=== PATIENT | male | born 1960 | race Caucasian/White ===

== ENCOUNTER 2019-04-14 16:10 | Emergency (ER) | payer OTHER ==
[2019-04-14 16:25] VITALS: PULSE 74; BMI 27.8
--- NOTE | 2019-04-14 16:41 | PDOC ---
Documentation entered by Vicky Armando SCRIBE, acting as scribe for Fatemeh Acuna MD. Fatemeh Acuna MD: This documentation has been prepared by the Tr best Xhesika, SCRIBE, under my direction and personally reviewed by me in its entirety. I confirm that the documentation accurately reflects all work, treatment, procedures, and medical decision making performed by me. Attending Attestation - Resident Resident Name: Guillaume Rodriguez - ED Attending Attestation I have performed the following: I have examined & evaluated the patient, The case was reviewed & discussed with the resident, I agree w/resident's findings & plan, Exceptions are as noted - HPI HPI: 04/14/19 18:18 This 58-year-old male has had an unsteady gait for the past several weeks and saw a nurse practitioner at [facility] on April 08 who felt it was an ear infection causing vertigo. He was placed on amoxicillin. However his symptoms did not improve - Physicial Exam PE: 04/14/19 18:22 wnwd 58 yo male ooking older than stated age p/w complaint of unsteady gait eyes paige eomi neck supple head ncat lungs cta b/l abd nontender extremities n deformities, no LE edema skin warm an dry neuro alert,conversant - Medical Decision Making 04/14/19 16:40 EKG sinus bradycardia at 58 bpm, incomplete right bundle branch block, LVH 04/14/19 19:30 CBC is within normal limits Chemistries are unremarkable CAT scan of the head showed no acute intracranial pathology, no bleed, no masses but there is a complete complete opacification of left mastoid air cells and left middle ear cavity pt was told to finish his antibiotics and see his PCP and the ENT specialist as soon as possible 04/15/19 01:27
[2019-04-14] MEDS ORDERED: ACETAMINOPHEN 1000 MG/100 ML VIAL (NON FORMULARY) IVPB ONE (17:08)
[2019-04-14] MEDS ORDERED: SODIUM CHLORIDE 0.9% 500 ML INFUS.BAG IV ONE (17:08)
--- NOTE | 2019-04-14 17:25 | PDOC ---
History of Present Illness - General Chief Complaint: Weakness Stated Complaint: LEG PAIN Time Seen by Provider: 04/14/19 16:36 - History of Present Illness Initial Comments: H&P obtained via wet finisher. Mr. Steve Packer is a 58 y/o male with non-contributory PMH presenting today with headache and weakness in the legs. Reports that he had a fever last Sunday (1 week ago). Reports that he saw his PCP on Sunday and was diagnosed with an ear infection and given amoxicillin. Reports a mild left sided headache over the past several days. Reports that he subjectively feels less energy and mildly unstable on his legs when walking. Headache does not radiate anywhere else. Family reports that he has worsening ataxia and unsteady gait over the past year. Reports that he was bit by a tick 1 year ago. Denies fever/chills. Denies abdominal pain. Denies dysuria or diarrhea. Denies back pain. Denies neck pain. Denies nausea/vomiting. Denies vision changes. Reports that he was supposed to f/u with his PCP today but she was not available and he subsequently came to the ED. Past History - Past Medical History Allergies/Adverse Reactions: Allergies Allergy/AdvReac Type Severity Reaction Status Date / Time No Known Allergies Allergy Verified 04/14/19 16:24 Home Medications: Ambulatory Orders NK [No Known Home Medication] 04/14/19 COPD: No - Psycho Social/Smoking Cessation Hx Smoking History: Unknown if ever smoked Hx Alcohol Use: No Drug/Substance Use Hx: No Review of Systems - Review of Systems Comments:: GENERAL/CONSTITUTIONAL: No fever or chills. Reports malaise. HEAD, EYES, EARS, NOSE AND THROAT: No change in vision. No change in hearing. No sore throat._ CARDIOVASCULAR: No chest pain or shortness of breath_ RESPIRATORY: Denies cough, hemoptysis_ GASTROINTESTINAL: No nausea, vomiting, diarrhea or constipation._ GENITOURINARY: No dysuria, frequency, or change in urination._ MUSCULOSKELETAL: No joint or muscle swelling or pain. No neck or back pain._ SKIN: No rash_ NEUROLOGIC: Reports mild headache and lightheadedness. No loss of consciousness , or change in strength/sensation. Reports unsteady gait. ENDOCRINE: No increased thirst. No abnormal weight change_ HEMATOLOGIC/LYMPHATIC: No anemia, easy bleeding, or history of blood clots._ ALLERGIC/IMMUNOLOGIC: No hives or skin allergy._ *Physical Exam - Vital Signs Last Vital Signs Temp Pulse Resp BP Pulse Ox 97.4 F L 74 16 134/78 97 04/14/19 16:22 04/14/19 16:22 04/14/19 16:22 04/14/19 16:22 04/14/19 16:22 - Physical Exam GENERAL: Awake, alert, and oriented to person/place/time, in no acute distress_ HEAD: No signs of trauma, normocephalic, atraumatic _ EYES: PERRLA, EOMI, sclera anicteric, conjunctiva clear_ ENT: Hearing grossly normal, nares patent, oropharynx clear without exudates. No uvular deviation. Moist mucosa_ NECK: Normal ROM, supple, no lymphadenopathy, JVD, or masses_ LUNGS: No distress, speaks in full sentences, clear to auscultation bilaterally _ HEART: Regular rate and rhythm, normal S1 and S2, no murmurs appreciated, peripheral pulses normal and equal bilaterally._ ABDOMEN: Soft, nontender, normoactive bowel sounds. No guarding, no rebound. No masses_ EXTREMITIES: Normal inspection, Normal range of motion, no edema. No clubbing or cyanosis_ NEUROLOGICAL: CN II-XII tested and intact. Sensation intact to sharp/dull differentiation in all extremities. Motor: Normal tone and bulk. No abnormal movements appreciated. No pronator drift. Strength tested and 5/5 in bilateral wrist flexion/extension, elbow flexion/extension, shoulder abduction, straight leg raise, knee flexion/ extension, ankle dorsiflexion/plantarflexion. Gait does not appear ataxic on exam. Coordination: Finger to nose and heel to greene testing intact bilaterally. SKIN: Warm, Dry, normal turgor, no rashes or lesions noted_ ED Treatment Course - LABORATORY CBC & Chemistry Diagram: 04/14/19 17:12 04/14/19 17:12 Medical Decision Making - Medical Decision Making 04/14/19 17:15 58M no significant PMH presenting with dizziness and subjective weakness in BLE and worsening ataxia per family. -cbc, cmp -ua, ucx -ct head -lyme ab 04/14/19 17:30 EKG shows sinus bradycardia at 58 bpm, incomplete right bundle branch block, LVH , QTc 432, no ST elevation/depression. 04/14/19 19:54 Patient reassessed. Reports that his symptoms have much improved. CT head shows complete opacification of the left mastoid air cells and left middle ear cavity. No acute intracranial hemorrhage or pathology noted. Labs reviewed. Plan to d/c home with ENT and PCP f/u. Laboratory Tests 04/14/19 04/14/19 04/14/19 17:12 17:12 17:12 WBC 6.6 RBC 4.67 Hgb 15.2 Hct 45.3 MCV 97.1 H MCH 32.7 MCHC 33.7 RDW 12.4 Plt Count 262 MPV 7.7 Absolute Neuts (auto) 3.3 Neutrophils % 49.6 Lymphocytes % 36.0 Monocytes % 9.8 Eosinophils % 3.9 Basophils % 0.7 Nucleated RBC % 0 Sodium 140 Potassium 4.2 Chloride 106 Carbon Dioxide 27 Anion Gap 7 L BUN 17.8 Creatinine 0.8 Est GFR (CKD-EPI)AfAm 114.93 Est GFR (CKD-EPI)NonAf 99.16 Random Glucose 85 Calcium 9.0 Total Bilirubin 0.3 AST 30 ALT 41 Alkaline Phosphatase 117 Total Protein 7.5 Albumin 3.7 Urine Color Cancelled Urine Appearance Cancelled Urine pH Cancelled Ur Specific [place] Urine Protein Cancelled Urine Glucose (UA) Cancelled Urine Ketones Cancelled Urine Blood Cancelled Urine Nitrite Cancelled Urine Bilirubin Cancelled Urine Urobilinogen Cancelled Ur Leukocyte Esterase Cancelled 04/14/19 19:33 WBC RBC Hgb Hct MCV MCH MCHC RDW Plt Count MPV Absolute Neuts (auto) Neutrophils % Lymphocytes % Monocytes % Eosinophils % Basophils % Nucleated RBC % Sodium Potassium Chloride Carbon Dioxide Anion Gap BUN Creatinine Est GFR (CKD-EPI)AfAm Est GFR (CKD-EPI)NonAf Random Glucose Calcium Total Bilirubin AST ALT Alkaline Phosphatase Total Protein Albumin Urine Color Yellow Urine Appearance Clear Urine pH 6.5 Ur Specific [place] 1.018 Urine Protein Negative Urine Glucose (UA) Negative Urine Ketones Negative Urine Blood Negative Urine Nitrite Negative Urine Bilirubin Negative Urine Urobilinogen 0.2 Ur Leukocyte Esterase Negative Discharge - Discharge Information Problems reviewed: Yes Clinical Impression/Diagnosis: Dizziness Condition: Stable Disposition: HOME - Admission No - Follow up/Referral Referrals: Alyson Hardin MD [Primary Care Provider] - Mike Garcia MD [Staff Physician] - - Patient Discharge Instructions Additional Instructions: Please make a follow up appointment with an ENT specialist (referral provided) and with your primary care doctor. It is extremely important that you follow up. Please finish your course of antibiotics. If you experience any new, worsening, or concerning symptoms, including severe headache, frequent falls, loss of consciousness, high fever that does not respond to medications, or any other concerns, please return to the emergency department. Onrma jamie alhaji de seguimiento con un otorrinolaringlogo (se proporciona referencia) y con chiu mdico de atencin primaria. Es extremadamente importante que realice un seguimiento. Por favor, termine chiu curso de antibiticos. Si experimenta algn sntoma nuevo, que empeora o preocupa, damion dolor de feroz intenso, cadas frecuentes, prdida del conocimiento, fiebre ender que no responde a los medicamentos o cualquier otra inquietud, regrese al departamento de emergencias. - Post Discharge Activity Work/Back to School Note: Back to Work
[2019-04-14 17:30] LABS: BASO % 0.7 % (0-2.0); EOS % 3.9 % (0-4.5); HEMATOCRIT 45.3 % (35.4-49); HEMOGLOBIN 15.2 GM/dL (11.7-16.9); MCH 32.7 pg (25.7-33.7); MCHC 33.7 g/dl (32.0-35.9); MEAN CELL VOLUME 97.1 fl (80-96); MEAN PLT VOLUME 7.7 fl (7.5-11.1); MONO % 9.8 % (3.8-10.2); NEUT % 49.6 % (42.8-82.8); PLATELET COUNT 262 K/MM3 (134-434); RBC 4.67 M/mm3 (4.00-5.60); RDW 12.4 % (11.9-15.9); WHITE BLOOD COUNT 6.6 K/mm3 (4.0-10.0)
[2019-04-14] MEDS ORDERED: ACETAMINOPHEN INJECTION 100 ML IVPB ONE (17:57)
[2019-04-14 18:26] LABS: ALBUMIN 3.7 g/dl (3.4-5.0); BILIRUBIN,TOTAL 0.3 mg/dL (0.2-1); BLOOD UREA NITROGEN 17.8 mg/dL (7-18); CREATININE 0.8 mg/dL (0.55-1.3); POTASSIUM 4.2 mmol/L (3.5-5.1); TOT PROT 7.5 g/dl (6.4-8.2)
[2019-04-14 19:39] LABS: PH,URINE 6.5 (5.0-8.0); URINE APPEARANCE CLEAR; URINE BILIRUBIN NEGATIVE (NEGATIVE); URINE COLOR YELLOW; URINE GLUCOSE (UA) NEGATIVE (NEGATIVE); URINE KETONE NEGATIVE (NEGATIVE); URINE LEUK ESTERASE NEGATIVE (NEGATIVE); URINE NITRITE NEGATIVE (NEGATIVE); URINE PROTEIN NEGATIVE (NEGATIVE); URINE UROBILINOGEN 0.2 mg/dL (0.2-1.0)
[2019-04-14 20:32] VITALS: BP 132/78; TEMP 97.6
--- NOTE | 2019-04-15 09:25 | EKG ---
Test Reason : Blood Pressure : / mmHG Vent. Rate : 058 BPM Atrial Rate : 058 BPM P-R Int : 160 ms QRS Dur : 092 ms QT Int : 434 ms P-R-T Axes : 019 -20 -03 degrees QTc Int : 426 ms SINUS BRADYCARDIA POSSIBLE LEFT ATRIAL ENLARGEMENT INCOMPLETE RIGHT BUNDLE BRANCH BLOCK LEFT VENTRICULAR HYPERTROPHY ABNORMAL ECG NO PREVIOUS ECGS AVAILABLE Confirmed by MD Miroslava, Braulio ([id number]) on 04/15/2019 9:25:10 AM Referred By: Confirmed By:Braulio [place] MD
[2019-04-16 23:07] LABS: IgG Ab 23 kDa Band Absent (.); IgG Ab 28 kDa Band Absent (.)
== END 2019-04-14 20:50 | disposition home or self-care (01) ==
LOC: JER 16:10
PROC: 3E033NZ Introduction of Analgesics, Hypnotics, Sedatives into Peripheral Vein, Percutaneous Approach (ICD-10-PCS; principal; 2019-04-14)
DX: R42 Dizziness and giddiness (principal); M62.81 Muscle weakness (generalized)
CPT/HCPCS: 36415; 70450-TC; 80053; 81003; 85025; 86618; 87086; 93005; 93010; 96374; 99283-25; J0131

== ENCOUNTER 2023-10-03 17:30 | Emergency (ER) | payer OTHER ==
[2023-10-03 17:44] VITALS: RESP 18; BMI 25.7
[2023-10-03] MEDS ORDERED: guaiFENesin/D-METHORPHAN HB 10 ML UNIT-DOSE CUPS ONE (20:37)
[2023-10-03] MEDS ORDERED: ALBUTEROL SO4 2.5/IPRATROPIUM 0.5 INH SOL 3 ML VIAL.NEB. NEB ONE ×2 (20:37→22:25)
[2023-10-03] MEDS: ALBUTEROL SO4 2.5/IPRATROPIUM 0.5 INH SOL 3 ML VIAL.NEB. NEB ONE (21:00)
[2023-10-03] MEDS: guaiFENesin/D-METHORPHAN HB 10 ML UNIT-DOSE CUPS PO ONE (21:01)
[2023-10-03 21:02] LABS: BASO % 0.4 % (0-2.0); EOS % 1.4 % (0-4.5); HEMATOCRIT 42.8 % (35.4-49); LYMPH % 23.3 % (8-40); MCH 33.4 pg (25.7-33.7); MEAN CELL VOLUME 95.4 fl (80-96); MEAN PLT VOLUME 7.9 fl (7.5-11.1); MONO % 11.5 % (3.8-10.2); NEUT % 63.4 % (42.8-82.8); PLATELET COUNT 197 10^3/uL (134-434); RBC 4.49 M/mm3 (4.00-5.60); RDW 13.2 % (11.9-15.9); WHITE BLOOD COUNT 6.7 K/mm3 (4.0-10.0)
[2023-10-03] MEDS ORDERED: ACETAMINOPHEN INJECTION 100 ML IVPB ONE (21:04)
[2023-10-03] MEDS: ACETAMINOPHEN 1000 MG/100 ML BAG IVPB ONE (21:16)
[2023-10-03 21:21] LABS: POTASSIUM 4.1 mmol/L (3.5-5.1)
[2023-10-03 21:23] LABS: ALBUMIN 4.3 g/dl (3.4-5.0); CALCIUM 8.6 mg/dL (8.5-10.1)
[2023-10-03 21:24] LABS: BLOOD UREA NITROGEN 20.3 mg/dL (7-18)
[2023-10-03 21:26] LABS: CREATININE 0.8 mg/dL (0.55-1.3)
[2023-10-03 21:28] LABS: BILIRUBIN,TOTAL 0.6 mg/dL (0.2-1); TOT PROT 8.3 g/dl (6.4-8.2)
[2023-10-03] MEDS ORDERED: DEXAMETHASONE SOD PHOSPHATE 10 MG/1 ML VIAL ONE (22:26)
[2023-10-03] MEDS: DEXAMETHASONE SOD PHOSPHATE 10 MG/1 ML VIAL IVPUSH ONE (22:32)
[2023-10-03] MEDS: ALBUTEROL SO4 2.5/IPRATROPIUM 0.5 INH SOL 3 ML VIAL.NEB. NEB SCH (22:32)
[2023-10-03 23:31] VITALS: BP 107/62; PULSE 60; TEMP 98.3
== END 2023-10-04 00:35 | disposition home or self-care (01) ==
LOC: JER 17:30 → JERFT 17:30
PROC: 3E033NZ Introduction of Analgesics, Hypnotics, Sedatives into Peripheral Vein, Percutaneous Approach (ICD-10-PCS; principal; 2023-10-03)
PROC: 3E033GC Introduction of Other Therapeutic Substance into Peripheral Vein, Percutaneous Approach (ICD-10-PCS; 2023-10-03)
PROC: 3E0F7GC Introduction of Other Therapeutic Substance into Respiratory Tract, Via Natural or Artificial Opening (ICD-10-PCS; 2023-10-03)
PROC: 3E0F7GC Introduction of Other Therapeutic Substance into Respiratory Tract, Via Natural or Artificial Opening (ICD-10-PCS; 2023-10-03)
DX: J84.9 Interstitial pulmonary disease, unspecified (principal); R50.9 Fever, unspecified; R05.9 Cough, unspecified; M79.10 Myalgia, unspecified site; R51.9 Headache, unspecified; R07.9 Chest pain, unspecified; M54.6 Pain in thoracic spine; R06.02 Shortness of breath; R09.81 Nasal congestion; Z20.822 Contact with and (suspected) exposure to COVID-19
CPT/HCPCS: 0241U-QW; 36415; 71046-TC-FY; 71250-TC; 80053; 83605; 84484; 85025; 93005; 93010; 99285-25; J0131; J1100